=== PATIENT | female | born 1940 | race Caucasian/White ===

== ENCOUNTER 2018-04-17 15:17 | Emergency (ER) | payer BC, SELFPAY ==
[2018-04-17 15:23] VITALS: BP 176/92; PULSE 90; RESP 17; TEMP 36.6; O2SAT 100
--- NOTE | 2018-04-17 16:01 | ED_ITS ---
HPI - Epistaxis <MERLINE Paul - Last Filed: 04/17/18 22:08> General Chief complaint: Nasal Problem Stated complaint: Nose bleed Time Seen by Provider: 04/17/18 15:41 Source: patient Mode of arrival: EMS Limitations: no limitations History of Present Illness HPI Narrative: 77-year-old female history of epistaxis events and in nonsmoker here for complaint of a nosebleed that started earlier today. She denies any trauma to the nose. She was brought in by EMS for symptoms. She denies being on any blood thinners. She does take 1 baby aspirin a day. She states bleeding has stopped at this point she states that she has roughly about 1 nose bleed a week. She is currently waiting to get in the ENT for further evaluation. She will return home and about a week and she is currently in the area visiting. She denies any other concerns or complaints at this time. MD complaint: epistaxis Related Data Home Medications Medication Instructions Recorded Confirmed aspirin 81 mg PO DAILY 04/17/18 04/17/18 calcium carbonate-vitamin D3 1 tab PO BID 04/17/18 04/17/18 [Calcium 500 + D (D3)] cetirizine [Zyrtec] 20 mg PO QAM 04/17/18 04/17/18 cholecalciferol (vitamin D3) 2,000 unit PO DAILY 04/17/18 04/17/18 [Vitamin D3] conjugated estrogens [Premarin] 1 applic VAGINAL BID 04/17/18 04/17/18 cyclosporine [Restasis] 1 drp OPHTHALMIC (EYE) DAILY 04/17/18 04/17/18 diphenhydramine HCl [Benadryl] 50 mg PO QPM 04/17/18 04/17/18 glucosamine sulfate 1 cap PO BID 04/17/18 04/17/18 losartan 25 mg PO DAILY 04/17/18 04/17/18 magnesium oxide 1 tab PO DAILY 04/17/18 04/17/18 Review of Systems <MERLINE Paul - Last Filed: 04/17/18 22:08> Constitutional Denies chills, Denies fatigue, Denies fever(s), Denies lethargy and Denies weakness Eyes Denies change in vision, Denies eye discharge, Denies irritation and Denies loss of vision ENT Ears, Nose, Mouth, and Throat: Reports epistaxis Cardiovascular Denies dyspnea and Denies dyspnea on exertion Respiratory Denies cough, Denies dyspnea, Denies dyspnea on exertion and Denies wheezing Gastrointestinal Gastrointestinal: Denies abdominal pain, Denies change in bowel habits, Denies diarrhea, Denies nausea and Denies vomiting Genitourinary Denies hematuria, Denies flank pain, Denies urinary incontinence and Denies urinary urgency Musculoskeletal Denies back pain, Denies muscle weakness, Denies numbness and Denies tingling Integumentary/Breasts Denies pruritus, Denies erythema, Denies rash and Denies wounds Neurologic Denies confusion, Denies loss of vision, Denies numbness, Denies tingling and Denies weakness Psychiatric Denies anxiety, Denies confusion, Denies depression, Denies homicidal ideation and Denies suicidal ideation Endocrine Denies fatigue and Denies flushing Hematologic/Lymphatic Denies easy bruising Allergic/Immunologic Denies wheezing Exam <MERLINE Paul - Last Filed: 04/17/18 22:08> Initial Vital Signs Initial Vital Signs: Vital Signs Temperature 97.8 F 04/17/18 15:23 Pulse Rate 90 04/17/18 15:23 Respiratory Rate 17 04/17/18 15:23 Blood Pressure 176/92 H 04/17/18 15:23 Pulse Oximetry 100 04/17/18 15:23 Const General: cooperative and well developed Nutritional Appearance: well nourished Orientation: alert, awake, oriented x3 and not confused HENMT Nose: external nose normal and epistaxis Mouth: oral mucosae normal and moist mucous membranes Eyes Conjunctivae: conjunctivae normal Sclera: sclerae normal Pupils: PERRL EOM: EOM intact bilaterally Cardio Rate: regular rate Rhythm: regular rhythm Heart Sounds: no click, no gallops, no murmurs and no rubs Pulses: normal peripheral pulses Skin General: no rashes or lesions noted, No jaundice and No petechiae Neuro General: alert, oriented x3, gait normal and no focal motor deficits Speech: speech normal <Bella Castellanos DO - Last Filed: 04/20/18 08:12> Initial Vital Signs Initial Vital Signs: Vital Signs Temperature 97.8 F 04/17/18 15:23 Pulse Rate 90 04/17/18 15:23 Respiratory Rate 17 04/17/18 15:23 Blood Pressure 176/92 H 04/17/18 15:23 Pulse Oximetry 100 04/17/18 15:23 Course <MERLINE Paul - Last Filed: 04/17/18 22:08> Orders Ordered: ED Orders 04/17/18 16:41 Complete Blood Count AUTO DIFF Stat Comprehensive Metabolic Panel Stat Prothrombin Time INR Stat Vital Signs - 8 hr 04/17/18 15:23 04/17/18 18:00 Temperature 97.8 F Pulse Rate 90 74 Respiratory Rate 17 14 Blood Pressure 176/92 H Blood Pressure [Left Arm] 122/64 Pulse Oximetry 100 99 <Bella Castellanos DO - Last Filed: 04/20/18 08:12> Orders Ordered: ED Orders 04/17/18 16:41 Complete Blood Count AUTO DIFF Stat Comprehensive Metabolic Panel Stat Prothrombin Time INR Stat Vital Signs - 8 hr 04/17/18 15:23 04/17/18 18:00 Temperature 97.8 F Pulse Rate 90 74 Respiratory Rate 17 14 Blood Pressure 176/92 H Blood Pressure [Left Arm] 122/64 Pulse Oximetry 100 99 MDM - Epistaxis <MERLINE Paul - Last Filed: 04/17/18 22:08> Lab Data Result diagrams: 04/17/18 16:41 04/17/18 16:41 Lab Results 04/17/18 04/17/18 04/17/18 Range/Units 16:41 16:41 16:41 WBC 10.0 (4.5-11.0) X10^3/uL RBC 3.91 L (4.0-5.2) X10^6/uL Hgb 12.6 (12.0-16.0) g/dL Hct 36.7 (36-46) % MCV 94.1 (80-100) fL MCH 32.3 (26-34) PG MCHC 34.4 (30-36) % RDW 13.9 (11.6-14.8) % Plt Count 277 (150-400) X10^3/uL Neut % (Auto) 62.7 (50-75) % Lymph % (Auto) 17.0 L (25-40) % Twiggs % (Auto) 18.2 H (3-14) % Eos % (Auto) 1.3 L (2-4) % Baso % (Auto) 0.8 (0-2) % Neut # (Auto) 6300 H (7310-8693) /uL PT 13.0 H (10.1-12.7) SECONDS INR 1.2 (0.9-1.3) Sodium 138 (137-145) mmol/L Potassium 4.3 (3.4-5.1) mmol/L Chloride 101 (98-107) mmol/L Carbon Dioxide 26 (22-32) mmol/L BUN 18 H (7-17) mg/dL Creatinine 0.80 (0.52-1.04) mg/dL Estimated GFR > 60.0 (>60) mL/min BUN/Creatinine Ratio 22.5 H (6-22) Glucose 131 H (80-110) mg/dL Calcium 9.1 (8.4-10.2) mg/dL Total Bilirubin 0.5 (0.2-1.3) mg/dL AST 32 (14-36) IU/L ALT 36 (9-52) IU/L Alkaline Phosphatase 75 (38-126) U/L Total Protein 7.5 (6.3-8.2) g/dL Albumin 4.1 (3.5-5.0) g/dL Globulin 3.4 (1.7-4.1) g/dL Albumin/Globulin Ratio 1.2 (1.0-2.8) MDM Narrative Medical decision making narrative: At time exam nosebleed had stopped after a dictation of direct pressure with a nose clamp. No source of the bleeding is able to be seen on exam. CBC and Chem panel were obtained was unremarkable. INR was also unremarkable. Will have follow-up with ENT as soon she returns home. Follow up with primary care provider. For any worsening symptoms return to the emergency room. <Bella Castellanos, DO - Last Filed: 04/20/18 08:12> Lab Data Lab Results 04/17/18 04/17/18 04/17/18 Range/Units 16:41 16:41 16:41 WBC 10.0 (4.5-11.0) X10^3/uL RBC 3.91 L (4.0-5.2) X10^6/uL Hgb 12.6 (12.0-16.0) g/dL Hct 36.7 (36-46) % MCV 94.1 (80-100) fL MCH 32.3 (26-34) PG MCHC 34.4 (30-36) % RDW 13.9 (11.6-14.8) % Plt Count 277 (150-400) X10^3/uL Neut % (Auto) 62.7 (50-75) % Lymph % (Auto) 17.0 L (25-40) % Twiggs % (Auto) 18.2 H (3-14) % Eos % (Auto) 1.3 L (2-4) % Baso % (Auto) 0.8 (0-2) % Neut # (Auto) 6300 H (5737-3112) /uL PT 13.0 H (10.1-12.7) SECONDS INR 1.2 (0.9-1.3) Sodium 138 (137-145) mmol/L Potassium 4.3 (3.4-5.1) mmol/L Chloride 101 (98-107) mmol/L Carbon Dioxide 26 (22-32) mmol/L BUN 18 H (7-17) mg/dL Creatinine 0.80 (0.52-1.04) mg/dL Estimated GFR > 60.0 (>60) mL/min BUN/Creatinine Ratio 22.5 H (6-22) Glucose 131 H (80-110) mg/dL Calcium 9.1 (8.4-10.2) mg/dL Total Bilirubin 0.5 (0.2-1.3) mg/dL AST 32 (14-36) IU/L ALT 36 (9-52) IU/L Alkaline Phosphatase 75 (38-126) U/L Total Protein 7.5 (6.3-8.2) g/dL Albumin 4.1 (3.5-5.0) g/dL Globulin 3.4 (1.7-4.1) g/dL Albumin/Globulin Ratio 1.2 (1.0-2.8) Discharge Plan Departure Patient Disposition: Home Clinical Impression: Epistaxis Discharge Date/Time: 04/17/18 18:00 Interventions: ED Discharge Assessment Last Done: 04/17/18 18:00 Instructions: DI for Nosebleed Activity Restrictions/Additional Instructions: Laboratory work today was unremarkable. Follow up with ENT symptoms return home for further treatment and evaluation. Use the nose clamp for future nosebleeds. Follow up with primary care provider. For worsening symptoms she may return to the emergency room. Prescriptions: No Action cetirizine [Zyrtec] 10 mg Tablet 20 mg PO QAM RF: 0 aspirin 81 mg Tablet,Delayed Release (Dr/Ec) 81 mg PO DAILY RF: 0 diphenhydramine HCl [Benadryl] 25 mg Capsule 50 mg PO QPM RF: 0 conjugated estrogens [Premarin] 0.625 mg/gram Cream 1 applic VAGINAL BID RF: 0 losartan 25 mg Tablet 25 mg PO DAILY RF: 0 glucosamine sulfate 1,000 mg Capsule 1 cap PO BID RF: 0 cyclosporine [Restasis] 0.05 % Dropperette 1 drp ophthalmic (eye) DAILY RF: 0 cholecalciferol (vitamin D3) [Vitamin D3] 1,000 unit Tablet 2,000 unit PO DAILY RF: 0 calcium carbonate-vitamin D3 [Calcium 500 + D (D3)] 500 mg(1,250mg) -125 unit Tablet 1 tab PO BID RF: 0 magnesium oxide 1 tab PO DAILY RF: 0 Referrals: [facility] [Provider Group] <Bella Castellanos DO - Last Filed: 04/20/18 08:12> Cosign ED Attending Cosignature Attestation: I was immediately available in the department for consultation. This documentation has been reviewed and I agree with assessment and plan. Supervised by Bella Castellanos DO
[2018-04-17 16:47] LABS: Add Manual Diff / Slide Review NO; Basophils Percent Auto 0.8 % (0-2); Eosinophils Percent Auto 1.3 % (2-4); Hematocrit 36.7 % (36-46); Hemoglobin 12.6 g/dL (12.0-16.0); Mean Corpuscular HGB Conc 34.4 % (30-36); Mean Corpuscular Hemoglobin 32.3 PG (26-34); Mean Corpuscular Volume 94.1 fL (80-100); Monocytes Percent Auto 18.2 % (3-14); Neutrophils Absolute Auto 6300 /uL (3000-5900); Neutrophils Percent Auto 62.7 % (50-75); Platelet Count 277 X10^3/uL (150-400); Red Blood Cell Count 3.91 X10^6/uL (4.0-5.2); Red Cell Distribution Width 13.9 % (11.6-14.8)
[2018-04-17 17:00] LABS: INR 1.2 (0.9-1.3)
[2018-04-17 17:18] LABS: Alanine Aminotransferase 36 IU/L (9-52); Albumin 4.1 g/dL (3.5-5.0); Albumin Globulin Ratio 1.2 (1.0-2.8); Alkaline Phosphatase 75 U/L (38-126); Aspartate Aminotransferase 32 IU/L (14-36); BUN Creatinine Ratio 22.5 (6-22); Bilirubin Total 0.5 mg/dL (0.2-1.3); Blood Urea Nitrogen 18 mg/dL (7-17); Calcium 9.1 mg/dL (8.4-10.2); Carbon Dioxide 26 mmol/L (22-32); Chloride 101 mmol/L (98-107); Estimated Glomerular Filt Rate > 60.0 mL/min (>60); Globulin 3.4 g/dL (1.7-4.1); Glucose 131 mg/dL (80-110); HEMOLYSIS < 15 (0-50); Potassium 4.3 mmol/L (3.4-5.1); Sodium 138 mmol/L (137-145); Total Protein 7.5 g/dL (6.3-8.2)
[2018-04-17 18:00] VITALS: BP 122/64; PULSE 74; RESP 14; O2SAT 99
== END 2018-04-17 18:00 | disposition home or self-care (01) ==
PROVIDERS: Emergency Provider Nurse Practitioner Family
DX: R04.0 Epistaxis (principal)
CPT/HCPCS: 36415; 80053; 85025; 85610; 99282; 99283